=== PATIENT | female | born 1935 | race Caucasian/White ===

== ENCOUNTER 2020-01-23 14:36 | Emergency (ER) | payer MEDICARE, OTHER ==
[~2020-01-23] VITALS: Ht 160 cm; Wt 89.0 kg
[2020-01-23 14:47] VITALS: BP 164/113
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
--- NOTE | 2020-01-23 16:07 | RAD ---
2 view left hip study Clinical indications: Fall with pain. FINDINGS: There is deformity of the left femoral head with sclerosis. This may be seen with old avascular necrosis. There is lateral subluxation of the femoral head with respect to the acetabulum. There is loss of the joint space superiorly and laterally with [id number] interface and subchondral sclerosis. No acute fracture of the proximal left femur is seen. There is a nondisplaced fracture of the left superior pubic ramus. No diastases of the symphysis pubis or either SI joint is seen. There is sclerosis and mottling of the right femoral head with mild deformity. 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 There is loss of the joint space of the superior-lateral aspect of the right hip joint with [id number] interface. There is subchondral sclerosis and prominent spurring. There is mild lateral subluxation of the femoral head with respect to the acetabulum. IMPRESSION: Acute nondisplaced fracture of left superior pubic ramus. 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 This may be secondary to avascular necrosis on both sides. There is chronic lateral subluxation of the femoral head on both sides much more so on the left side. There is elongation and enlargement of the left acetabulum as a result. Electronically signed by: Bradly Reid MD (01/23/2020 4:04 PM) [facility] [place]
== END 2020-01-23 17:10 | disposition home or self-care (01) ==
LOC: ER 14:36
DX: S32.512A Fracture of superior rim of left pubis, initial encounter for closed fracture (principal); M25.552 Pain in left hip; M19.90 Unspecified osteoarthritis, unspecified site; I10 Essential (primary) hypertension; W18.39XA Other fall on same level, initial encounter; Y93.89 Activity, other specified; Y92.89 Other specified places as the place of occurrence of the external cause; Y99.8 Other external cause status
CPT/HCPCS: 73502; 99283